=== PATIENT | female | born 1980 | race Caucasian/White ===

== ENCOUNTER 2017-07-05 14:56 | Emergency (ER) | payer BC ==
[~2017-07-05] VITALS: Ht 160 cm; Wt 90.7 kg
[~2017-07-05 14:56] MED LIST: ACETAMINOPHEN-1 EAC1 PO; FLEXERIL PO; MEDROLDOSEPACK PO; MUCINEX DM ER1 EACH; PROAIR HFA8.5 GM INH; ROBITUSSIN-COU237 ML; TESSALON PERLE100 MG PO; ZPAK PO
[2017-07-05 15:42] LABS: INFLUENZA A ANTIGEN None Detected (None Detect); INFLUENZA B ANTIGEN None Detected (None Detect)
[2017-07-05] MEDS ORDERED: ZOFRAN4 MG PO (16:53)
[2017-07-05] MEDS ORDERED: VENTOLIN HFA 1818 GM INH (16:53)
[2017-07-05 17:05] VITALS: BP 139/98
== END 2017-07-05 17:05 | disposition home or self-care (01) ==
LOC: M.ERS 14:56
PROVIDERS: Emergency Medicine
DX: B34.9 Viral infection, unspecified (principal); G43.909 Migraine, unspecified, not intractable, without status migrainosus; Z98.890 Other specified postprocedural states

== ENCOUNTER 2020-09-22 09:31 | Emergency (ER) | payer OTHER ==
[~2020-09-22] VITALS: Ht 160 cm; Wt 98.0 kg
[~2020-09-22 09:31] MED LIST changes: +VENTOLIN HFA 1818 GM INH; +ZOFRAN4 MG PO
[2020-09-22] MEDS ORDERED: BUSPIRONE HCL10 MG PO (10:09)
[2020-09-22] MEDS ORDERED: BUSPIRONE HCL5 MG PO (10:10)
[2020-09-22] MEDS ORDERED: XANAX 0.5 MG0.5 M1 PO (10:10)
[2020-09-22] MEDS ORDERED: COZAAR 25 MG TA25 M1 PO (10:11)
[2020-09-22 11:09] LABS: ABSOLUTE BASOPHILS 0.1 thou/uL (0.0-0.2); ABSOLUTE LYMPHOCYTES 1.6 thou/uL (0.8-5.3); ABSOLUTE MONOCYTES 0.5 thou/uL (0.0-1.2); ABSOLUTE NEUTROPHILS 6.9 thou/uL (1.6-8.1); BASOPHILS 0.6 %; EOSINOPHILS 0.3 %; HEMATOCRIT 39.9 % (37.0-47.0); HEMOGLOBIN 13.1 gm/dL (12.0-15.0); LYMPHOCYTES 17.4 %; MCH 27.5 pg (26.0-34.0); MCHC 32.7 g/dL (28.0-37.0); MCV 83.9 fL (80.0-100.0); MONOCYTES 5.3 %; MPV 7.7 fl. (7.2-11.1); NUCLEATED RBCS 0 /100WBC; PLATELET COUNT* 303 thou/uL (150-400); POLYS 76.4 %; RBC 4.75 mil/uL (4.20-5.00); RDW-CV 14.6 % (10.5-14.5)
[2020-09-22 11:36] LABS: APTT 27.3 Seconds (25.0-31.3); PROTIME 10.9 Seconds (9.20-11.50)
[2020-09-22 11:38] LABS: CALCIUM 9.7 mg/dL (8.5-10.1); CREATININE 0.7 mg/dL (0.6-1.3); POTASSIUM 4.1 mmol/L (3.5-5.1)
[2020-09-22 11:42] LABS: TOTAL BILIRUBIN 0.6 mg/dL (<0.1-1.0); TOTAL PROTEIN 8.4 g/dL (6.4-8.2)
[2020-09-22] MEDS ORDERED: CLONIDINE HCL0.1 MG PO (13:08)
[2020-09-22 14:00] VITALS: BP 129/86
--- NOTE | 2020-09-22 16:30 | EKG ---
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[id number] Requested By: Khadar Mar Order Number: [id number] MD: Pascual Hubbard Measurements Intervals [place] Rate: 106 P: 62 UT: 168 QRS: 52 QRSD: 98 T: 19 QT: 335 QTc: 445 Interpretive Statements Sinus tachycardia Baseline wander in lead(s) III No previous ECG available for comparison Electronically Signed On 09-22-2020 16:29:56 CDT by Pascual Hubbard [email or web address] <ELECTRONICALLY SIGNED> By: Pascual Hubbard MD, [facility] 09/22/20 1629 20 20 Pascual Hubbard MD, [facility] /EPI
== END 2020-09-22 14:01 | disposition home or self-care (01) ==
LOC: M.ERS 09:31
PROVIDERS: Nurse Practitioner Family
DX: F41.9 Anxiety disorder, unspecified (principal); I10 Essential (primary) hypertension; N64.89 Other specified disorders of breast; R06.00 Dyspnea, unspecified; G43.909 Migraine, unspecified, not intractable, without status migrainosus; Z98.890 Other specified postprocedural states